=== PATIENT | female | born 1935 | race Caucasian/White ===

== ENCOUNTER → 2016-04-02 | Outpatient (CLI) | payer MEDICARE | END | disposition home or self-care (01) | LOC: PCVCCLINIC 10:02 | PROVIDERS: ATTEND Internal Medicine | DX: R07.9 Chest pain, unspecified (principal); E78.5 Hyperlipidemia, unspecified; I10 Essential (primary) hypertension | CPT/HCPCS: 93005; G0463 ==

== ENCOUNTER → 2017-04-21 | Outpatient (CLI) | payer MEDICARE | END | disposition home or self-care (01) | LOC: PCVCCLINIC 10:00 | DX: I10 Essential (primary) hypertension (principal); E78.5 Hyperlipidemia, unspecified; Z79.899 Other long term (current) drug therapy | CPT/HCPCS: 80061; 93005; G0463 ==

== ENCOUNTER → 2018-04-27 | Outpatient (CLI) | payer MEDICARE, OTHER | END | disposition home or self-care (01) | LOC: PCVCCLINIC 11:00 | PROVIDERS: ATTEND Internal Medicine | DX: R42 Dizziness and giddiness (principal); I10 Essential (primary) hypertension; R47.1 Dysarthria and anarthria; E78.5 Hyperlipidemia, unspecified; Z88.2 Allergy status to sulfonamides; Z79.82 Long term (current) use of aspirin; Z79.899 Other long term (current) drug therapy | CPT/HCPCS: 36415; 80061; 93005; G0463 ==

== ENCOUNTER → 2018-04-29 | Outpatient (CLI) | payer MEDICARE, OTHER ==
--- NOTE | 2018-04-29 16:59 | PCVCIMAG ---
APPROVED REPORT Laterality: Bilateral Indications Dizziness and Vertigo Dysarthia Risk Factors Hypertension: Hyperlipidemia Doppler Spectral Velocity Analysis PSV / EDVPSV / EDV ECA (R) 96 / 10 cm/sECA (L) 86 / 9 cm/s dICA (R) 82 / 18 cm/sdICA (L) 54 / 15 cm/s Salima (R) 51 / 16 cm/smICA (L) 53 / 18 cm/s pICA (R) 51 / 9 cm/spICA (L) 44 / 10 cm/s Bulb (R) 52 / 9 cm/sBulb (L) 59 / 12 cm/s dCCA (R) 76 / 12 cm/sdCCA (L) 66 / 13 cm/s mCCA (R) 83 / 12 cm/smCCA (L) 82 / 14 cm/s Vert (R) 43 / 10 cm/sVert (L) 55 / 0 cm/s ICA/CCA 0.98ICA/CCA 0.71 Basic Measurements Blood Pressure: Pulses: Right Left RightLeft Brachial(Sitting) 118/31ejLm612/76mmHgTemporal Real Time B-Mode Imaging Vert. (R)AntegradeVert. (L)Antegrade Findings The right carotid bulb has mild plaque. The right proximal internal carotid artery shows no significant stenosis. The right common carotid artery shows no significant stenosis. The right external carotid artery shows no significant stenosis. The left carotid bulb has mild plaque. The left proximal internal carotid artery shows no significant stenosis. The left common carotid artery shows no significant stenosis. The left external carotid artery shows no significant stenosis. Conclusion 1. Mild bilateral plaquing without significant stenosis 2. Antegrade vertebral flow
--- NOTE | 2018-04-29 17:15 | PCVCIMAG ---
APPROVED REPORT Study performed: 04/29/2018 14:33:39 EXAM: Comprehensive 2D, Doppler, and color-flow Echocardiogram Patient Location: Echo lab Status: routine BSA: 1.81 HR: 67 bpmBP: 114/78 mmHg Rhythm: NSR Other Information Study Quality: Adequate Risk Factors: Cardiac Risk Factors: HTN, Hyperlipidemia 2D Dimensions IVSd: 11.85 (7-11mm) LVDd: 37.44 mm PWd: 11.57 (7-11mm)Ascending Ao: 34.16 (22-36mm) LVDs: 24.95 (25-40mm) Left Atrium: 33.48 (27-40mm) Aortic Root: 31.42 mm LV Single Plane 4CH: 61.15 % LV Single Plane 2CH: 63.04 % Biplane EF: 62.0 % Volumes Left Atrial Volume (Systole) Single Plane 4CH: 48.55 mLSingle Plane 2CH: 63.48 mL LA ESV Index: 33.00 mL/m2 Aortic Valve AoV Peak Jeremy.: 1.35 m/s AO Peak Gr.: 7.34 mmHgLVOT Max P.11 mmHg LVOT Max V: 0.88 m/s AI Vmax: 5.13 m/s AI [place]: 3.65 m/s2 AI PHT: 408.46 ms Mitral Valve E/A Ratio: 0.9 MV Decel. Time: 316.02 ms MV E Max Jeremy.: 0.48 m/s MV A Jeremy.: 0.56 m/s IVRT: 128.03 ms Pulmonary Valve PV Peak Jeremy.: 0.65 m/sPV Peak Gr.: 1.68 mmHg Pulmonary Vein P Vein S: 0.29 m/sP Vein A: 0.26 m/s P Vein D: 0.38 m/sP Vein A Dur.: 121.1 msec P Vein S/D Ratio: 0.76 Tricuspid Valve TR Peak Jeremy.: 2.56 m/s TR Peak Gr.: 26.21 mmHg Left Ventricle The left ventricle is normal size. There is normal LV segmental wall motion. Borderline concentric left ventricular hypertrophy. Left ventricular systolic function is normal. The left ventricular ejection fraction is within the normal range. LVEF is 60-65%. Mild diastolic dysfunction is present (impaired relaxation pattern). Right Ventricle The right ventricle is normal size. The right ventricular systolic function is normal. Atria The left atrium size is normal. The right atrium size is normal. Aortic Valve The aortic valve is mildly sclerotic Moderate aortic regurgitation. There is no aortic valvular stenosis. Mitral Valve The mitral valve is normal in structure. No mitral regurgitation. No evidence of mitral valve stenosis. Tricuspid Valve The tricuspid valve is normal in structure. Mild tricuspid regurgitation with PAP of 30 mmHg. Pulmonic Valve The pulmonary valve is normal in structure. Mild to moderate pulmonic regurgitation. Great Vessels The aortic root is normal in size. IVC is normal in size and collapses >50% with inspiration. Pericardium There is no pericardial effusion. There is no pleural effusion. <Conclusion> Left ventricular systolic function is normal. There is normal LV segmental wall motion. LVEF is 60-65%. Mild diastolic dysfunction The aortic valve is mildly sclerotic, no stenosis. Moderate aortic regurgitation. The mitral valve is normal in structure. No mitral regurgitation. Mild tricuspid regurgitation with pulmonary artery pressure of 30 mmHg. There is no pericardial effusion.
== END | disposition home or self-care (01) ==
LOC: PCVCIMAG 13:56
PROVIDERS: ATTEND Internal Medicine
DX: I65.23 Occlusion and stenosis of bilateral carotid arteries (principal); I08.2 Rheumatic disorders of both aortic and tricuspid valves; R47.1 Dysarthria and anarthria; E78.5 Hyperlipidemia, unspecified; R42 Dizziness and giddiness; I10 Essential (primary) hypertension; Z82.49 Family history of ischemic heart disease and other diseases of the circulatory system
CPT/HCPCS: 93306; 93880

== ENCOUNTER → 2018-07-28 | Outpatient (CLI) | payer MEDICARE, OTHER | END | disposition home or self-care (01) | LOC: PCVCCLINIC 11:00 | PROVIDERS: ATTEND Internal Medicine | DX: E78.5 Hyperlipidemia, unspecified (principal); I10 Essential (primary) hypertension; R42 Dizziness and giddiness; Z88.2 Allergy status to sulfonamides | CPT/HCPCS: 36415; 80061; 93005; G0463 ==

== ENCOUNTER → 2018-10-25 | Outpatient (CLI) | payer MEDICARE, OTHER | END | disposition home or self-care (01) | LOC: PCVCCLINIC 13:00 | PROVIDERS: ATTEND Internal Medicine | DX: R42 Dizziness and giddiness (principal); E78.5 Hyperlipidemia, unspecified; I10 Essential (primary) hypertension; Z88.2 Allergy status to sulfonamides | CPT/HCPCS: 93005; G0463 ==